=== PATIENT | male | born 1980 | race Caucasian/White ===

== ENCOUNTER 2018-03-14 19:53 | Emergency (ER) | payer BC ==
[2018-03-14 20:11] VITALS: TEMP 98.2
[2018-03-14] MEDS ORDERED: SODIUM CHLORIDE 0.9% 1,000 ML IV STA (20:43)
[2018-03-14 20:49] LABS: Basophils % (A) 0 %; Eosinophils # (A) 0.3 k/uL (0-0.7); Eosinophils % (A) 5 %; HCT 44.6 % (39.0-53.0); HGB 15.1 gm/dL (13.0-17.5); Lymphocytes # (A) 1.6 k/uL (1.0-4.8); Lymphocytes % (A) 24 %; MCH 29.2 pg (25.0-35.0); MCHC 33.8 g/dL (31.0-37.0); MCV 86.3 fL (80.0-100.0); Mean Platelet Volume 6.5; Monocytes # (A) 0.4 k/uL (0-1.0); Monocytes % (A) 6 %; Neutrophils # (A) 4.3 k/uL (1.3-7.7); Neutrophils % (A) 64 %; Platelet Count 292 k/uL (150-450); RBC 5.16 m/uL (4.30-5.90); RDW 12.9 % (11.5-15.5); WBC 6.7 k/uL (3.8-10.6)
[2018-03-14 21:05] LABS: ALT 39 U/L (21-72); AST 28 U/L (17-59); Albumin 4.3 g/dL (3.5-5.0); Alkaline Phosphatase 50 U/L (38-126); Anion Gap 8 mmol/L; Blood Urea Nitrogen 6 mg/dL (9-20); Calcium 9.6 mg/dL (8.4-10.2); Carbon Dioxide 25 mmol/L (22-30); Chloride 105 mmol/L (98-107); Glucose 101 mg/dL (74-99); Potassium 4.5 mmol/L (3.5-5.1); Sodium 138 mmol/L (137-145); Total Bilirubin 0.7 mg/dL (0.2-1.3)
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
[2018-03-14 21:35] LABS: Appearance,Urine Clear (Clear); Bilirubin,Urine Negative (Negative); Blood,Urine Negative (Negative); Color,Urine Light Yellow; Glucose,Urine (UA) Negative (Negative); Ketones,Urine Negative (Negative); Leukocyte Esterase,Urine Negative (Negative); Nitrite,Urine Negative (Negative); PH, Urine 7.5 (5.0-8.0); Protein,Urine Negative (Negative); Specific Gravity,Urine 1.006 (1.001-1.035); Urobilinogen,Urine <2.0 mg/dL (<2.0)
--- NOTE | 2018-03-14 21:42 | CT ---
EXAMINATION TYPE: CT brain wo con DATE OF EXAM: 03/14/2018 COMPARISON: CT brain July 04, 2011 HISTORY: c/o hypertension and blurred vision CT DLP: 1087.4 mGycm. Automated Exposure Control for Dose Reduction was Utilized. TECHNIQUE: CT scan of the head is performed without contrast. FINDINGS: There is no acute intracranial hemorrhage, mass effect, or midline shift identified. The ventricles and sulci are within normal limits in size. Left globe prosthesis is redemonstrated. Visu alized paranasal sinuses are clear. Right globe is intact. IMPRESSION: No acute intracranial hemorrhage or midline shift is seen. Redemonstration of left globe prosthesis. No significant change from 2012 CT.
[2018-03-14] MEDS ORDERED: KETOROLAC 30 MG/ML 1 ML VIAL IVP STA (22:12)
[2018-03-14 22:53] VITALS: BP 135/82; PULSE 74; RESP 18
== END 2018-03-14 22:53 | disposition home or self-care (01) ==
LOC: EC 19:53
DX: R51 Headache (principal); R03.0 Elevated blood-pressure reading, without diagnosis of hypertension; H53.8 Other visual disturbances; Z87.891 Personal history of nicotine dependence; Z90.01 Acquired absence of eye
CPT/HCPCS: 36415; 93005; 80053; 85025; 81003; 70450; 99284; 96374; 96361; J1885

== ENCOUNTER → 2018-06-18 | Outpatient (CLI) | payer BC ==
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
== END ==
LOC: SLEEP 15:01
PROVIDERS: ATTEND Internal Medicine
DX: G47.33 Obstructive sleep apnea (adult) (pediatric) (principal); E66.9 Obesity, unspecified; I10 Essential (primary) hypertension; K58.9 Irritable bowel syndrome, unspecified; Z99.89 Dependence on other enabling machines and devices; Z68.33 Body mass index [BMI] 33.0-33.9, adult; Z97.0 Presence of artificial eye; Z79.899 Other long term (current) drug therapy
CPT/HCPCS: 99211

== ENCOUNTER → 2018-11-26 | Outpatient (CLI) | payer BC ==
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
== END | disposition home or self-care (01) ==
LOC: SLEEP 10:56
PROVIDERS: ATTEND Internal Medicine
DX: G47.33 Obstructive sleep apnea (adult) (pediatric) (principal); E66.9 Obesity, unspecified; I10 Essential (primary) hypertension; K58.9 Irritable bowel syndrome, unspecified; Z98.890 Other specified postprocedural states; Z97.0 Presence of artificial eye; Z99.89 Dependence on other enabling machines and devices; Z79.899 Other long term (current) drug therapy

== ENCOUNTER 2019-02-06 15:32 | Emergency (ER) | payer BC ==
[2019-02-06] MEDS ORDERED: DIPH,PERTUS(ACELL)TETVAC-LF 0.5 ML VIAL IM ONE (15:38)
[2019-02-06] MEDS ORDERED: HYDROmorphone 1 MG/ML 1 ML SYRINGE IVP STA ×4 (15:38→18:14)
[2019-02-06 15:41] LABS: Glucose,Whole Blood 184 mg/dL (75-99)
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
[2019-02-06 16:05] LABS: Basophils % (A) 0 %; Eosinophils # (A) 0.1 k/uL (0-0.7); Eosinophils % (A) 2 %; HCT 45.1 % (39.0-53.0); HGB 15.4 gm/dL (13.0-17.5); Lymphocytes % (A) 25 %; MCH 30.1 pg (25.0-35.0); MCHC 34.1 g/dL (31.0-37.0); MCV 88.2 fL (80.0-100.0); Mean Platelet Volume 7.3; Monocytes # (A) 0.5 k/uL (0-1.0); Monocytes % (A) 6 %; Neutrophils # (A) 5.3 k/uL (1.3-7.7); Neutrophils % (A) 65 %; Platelet Count 348 k/uL (150-450); RBC 5.12 m/uL (4.30-5.90); WBC 8.2 k/uL (3.8-10.6)
[2019-02-06 16:18] LABS: ALT 27 U/L (4-49); AST 30 U/L (17-59); African American GFR (CKD) >90 (>60 ml/min/1.73 sqM); Albumin 4.4 g/dL (3.5-5.0); Alcohol <10 mg/dL; Alkaline Phosphatase 54 U/L (38-126); Amylase 63 U/L (30-110); Anion Gap 9 mmol/L; Blood Urea Nitrogen 9 mg/dL (9-20); Calcium 9.5 mg/dL (8.4-10.2); Carbon Dioxide 24 mmol/L (22-30); Chloride 106 mmol/L (98-107); Glucose 176 mg/dL (74-99); Non-African American GFR(CKD) >90 (>60 ml/min/1.73 sqM); Sodium 139 mmol/L (137-145); Total Bilirubin 0.6 mg/dL (0.2-1.3); Total Protein 7.1 g/dL (6.3-8.2)
[2019-02-06 16:27] LABS: Prothrombin Time 10.4 sec (9.0-12.0)
[2019-02-06 16:37] LABS: Partial Thromboplastin Time 21.3 sec (22.0-30.0)
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
[2019-02-06 16:45] LABS: Creatine Kinase 256 U/L (55-170)
[2019-02-06 16:56] LABS: Creatine Kinase MB 1.3 ng/mL (0.0-2.4); Troponin I <0.012 ng/mL (0.000-0.034)
[2019-02-06] MEDS ORDERED: clonazePAM 1 MG TAB PO STA (17:01)
[2019-02-06] MEDS ORDERED: LIDOCAINE 1% INJ 10MG/ML (20 ML MDV) SQ ONE (19:13)
[2019-02-06] MEDS ORDERED: HYDROmorphone 0.5 MG/0.5 ML SYRINGE IVP STA (20:19)
[2019-02-06 21:14] VITALS: BP 126/74; PULSE 92; RESP 15; TEMP 98.9
== END 2019-02-06 21:14 | disposition home or self-care (01) ==
LOC: EC 15:32
DX: S62.305A Unspecified fracture of fourth metacarpal bone, left hand, initial encounter for closed fracture (principal); S61.042A Puncture wound with foreign body of left thumb without damage to nail, initial encounter; Z87.891 Personal history of nicotine dependence; Z23 Encounter for immunization; W34.00XA Accidental discharge from unspecified firearms or gun, initial encounter
CPT/HCPCS: 99285; 64450; 29125; 96365; 96375; 96376 ×3; 96361; 90471; 90472; 36415; 80053; 82150; 82550; 82553; 83605; 83690; 84484; 85025; 85610; 85730; 80320; 73130; 90715; J0690; J2001; J1170 ×2

== ENCOUNTER → 2019-08-05 | Outpatient (CLI) | payer BC ==
[2019-08-05 07:45] LABS: HCT 45.8 % (39.0-53.0); HGB 14.9 gm/dL (13.0-17.5); MCHC 32.7 g/dL (31.0-37.0); Platelet Count 342 k/uL (150-450); RBC 4.98 m/uL (4.30-5.90); RDW 13.8 % (11.5-15.5); WBC 8.3 k/uL (3.8-10.6)
[2019-08-05 11:27] LABS: ALT 39 U/L (10-49); AST 27 U/L (14-35); Alkaline Phosphatase 68 U/L (41-126); Bilirubin, Conjugated <0.20 mg/dL (0.20-0.40); Chol/HDL Ratio 5.37; Cholesterol 204 mg/dL (0-200); Globulin 2.2 g/dL (1.6-3.3); LDL Cholesterol,Calculated 110.2 mg/dL (0.0-131.0); Total Bilirubin 0.5 mg/dL (0.2-1.2); Total Protein 6.6 g/dL (6.2-8.2)
== END | disposition home or self-care (01) ==
LOC: LABWHC1 07:09
PROVIDERS: ATTEND Urology
DX: E78.5 Hyperlipidemia, unspecified (principal); E29.1 Testicular hypofunction
CPT/HCPCS: 36415; 80061; 80076; 85027

== ENCOUNTER → 2024-05-25 | Outpatient (CLI) | payer BC ==
--- NOTE | 2024-05-26 10:11 | CA ---
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 Codes: Patient History: CHEST PAIN, HTN, FAMILY HX OF HEART DISEASE Medications: LOMOTIL, LOTZEL, KLONOPIN, AMBIEN Meds past 24 hrs: Pretest Chest Pain: STRESS TEST Stefano Protocol Exercise Duration (min:sec): 10:[address] Depressions (mm): Angina Score: Manning Score: Resting HR (bpm): 82 Peak HR (bpm): 169 Resting BP (mmHg): 151 / 100 Peak BP (mmHg): 199 / 65 MPHR: 178 Target HR: 151 % MPHR: 95 METS: 12.1 Total Dose: Peak Dose: Atropine: Double Product: 19337 BP Response: Stress Termination: TARGET HR REACHED/MAX EXERTION Stress Symptoms: NO SYMPTOMS Stress Summary: ECG ANALYSIS Resting ECG: Normal sinus rhythm, heart rate 82 bpm Stress ECG: No significant ST-T wave changes are diagnostic for ischemia by ST segment analysis. There were no sustained arrhythmias or ectopic beats CONCLUSIONS Good exercise tolerance patient achieved 12.1 METS Hypertensive at baseline Nonischemic ECG response to treadmill exercise Overall low probability for severe obstructive CAD Dr Lincoln Macario (Electronically Signed) Final Date: 26 May 2024 10:10
== END | disposition home or self-care (01) ==
LOC: RADNMMAIN 10:33
PROVIDERS: ATTEND Family Medicine
DX: I20.89 Other forms of angina pectoris (principal); I10 Essential (primary) hypertension
CPT/HCPCS: 93017